=== PATIENT | male | born 1970 | race Caucasian/White ===

== ENCOUNTER 2018-02-22 08:58 | Outpatient (CLI) | payer OTHER | END 2018-02-22 08:59 | disposition home or self-care (01) | LOC: RHC-LAB 08:58 | PROVIDERS: ATTEND Emergency Medicine | DX: E66.9 Obesity, unspecified (principal); I10 Essential (primary) hypertension; Z12.5 Encounter for screening for malignant neoplasm of prostate | CPT/HCPCS: 36415; 80053; 80061; 84443; 85025 ==